=== PATIENT | male | born 1995 | race Caucasian/White ===

== ENCOUNTER 2020-05-24 15:55 | Outpatient (CLI) | payer BC | END 2020-05-24 15:56 | disposition critical access hospital (66) | LOC: EMS 15:55 | PROVIDERS: ATTEND Emergency Medicine | DX: R56.9 Unspecified convulsions (principal) | CPT/HCPCS: A0425; A0427 ==

== ENCOUNTER 2020-05-24 16:14 | Emergency (ER) | payer BC ==
--- NOTE | 2020-05-24 16:30 | ED Physician Documentation ---
History of Present Illness - Stated complaint Stated Complaint: SEIZURE - Chief complaint Chief Complaint: Neuro - History obtained from History obtained from: Patient - History of Present Illness Timing: Today Pain level max: 0 Pain level now: 0 - Additonal information Additional information: Patient is a 24-year-old male who presents to the emergency department with recurrent seizures today. Has a longstanding history of seizures. Takes zonisamide. Does not know his dosage. Last seizure was about 4 weeks ago. States he had 3 seizures today lasting about 30 seconds each. He has not been sleeping well recently. No recent illnesses. No recent trauma. Nothing makes it better or worse. No injuries today. Review of Systems Constitutional: denies: Fever, Chills GI: denies: Vomiting, Diarrhea Skin: denies: Rash Musculoskeletal: denies: Neck pain, Back pain Neurologic: denies: Confused, Head injury, LOC PD PAST MEDICAL HISTORY - Past Medical History Past Medical History: Yes Neuro: Seizure disorder Musculoskeletal: Other (marfan's syndrome) - Past Surgical History Past Surgical History: No - Allergies Allergies/Adverse Reactions: Allergies Allergy/AdvReac Type Severity Reaction Status Date / Time prochlorperazine AdvReac Hallucinati Verified 05/24/20 16:26 [From Compazine] ons - Living Situation Living Arrangement: reports: At home - Family History Family history: reports: Non contributory PD ED PE NORMAL - Vitals Vital signs reviewed: Yes - General General: Alert and oriented X 3, No acute distress, Well developed/nourished - HEENT HEENT: Atraumatic, PERRL, EOMI, Ears normal, Moist mucous membranes - Neck Neck: Supple, no meningeal sign - Cardiac Cardiac: RRR, Strong equal pulses - Respiratory Respiratory: No respiratory distress, Clear bilaterally - Abdomen Abdomen: Soft, Non tender, Non distended - Derm Derm: Warm and dry, No rash - Extremities Extremities: No edema, No calf tenderness / cord - Neuro Neuro: Alert and oriented X 3, nuclear weapons custodian 2-12 intact, No motor deficit, No sensory deficit, Normal speech Eye Opening: Spontaneous Motor: Obeys Commands Verbal: Oriented GCS Score: 15 - Psych Psych: Normal mood, Normal affect Results - Vitals Vitals: Vital Signs - 24 hr 05/24/20 05/24/20 05/24/20 16:14 16:30 17:09 Temperature 37.1 C Heart Rate 102 H 101 H 76 Respiratory 18 16 18 Rate Blood Pressure 121/73 117/79 110/76 O2 Saturation 99 98 99 Oxygen O2 Source Room air - Labs Labs: Laboratory Tests 05/24/20 05/24/20 16:32 16:32 WBC 5.5 RBC 4.42 L Hgb 13.6 L Hct 39.6 L MCV 89.6 MCH 30.8 MCHC 34.3 RDW 12.5 Plt Count 190 MPV 9.6 Neut # (Auto) 3.6 Lymph # (Auto) 1.3 L [place] # (Auto) 0.4 Eos # (Auto) 0.1 Baso # (Auto) 0.0 Absolute Nucleated RBC 0.00 Nucleated RBC % 0.0 Sodium 143 Potassium 3.8 Chloride 109 Carbon Dioxide 26 Anion Gap 8.0 BUN 12 Creatinine 0.9 Estimated GFR (MDRD) 104 Glucose 107 H Calcium 9.5 Total Bilirubin 0.6 AST 17 ALT 17 Alkaline Phosphatase 37 L Total Protein 6.9 Albumin 4.3 Globulin 2.6 Albumin/Globulin Ratio 1.7 PD MEDICAL DECISION MAKING - ED course Complexity details: reviewed results, re-evaluated patient, considered differential, d/w patient ED course: 24-year-old male with a recurrent seizure disorder. 3 short seizures today, lasting approximately 30 seconds each. He is on zonisamide. Does not know his dosage. No significant lab abnormalities. Has not been sleeping well, sleep deprivation may be contributing to the increased seizure frequency. Recommend he contact his doctor tomorrow and get a referral for a neurologist here. He moved here about a year ago. Patient counseled regarding signs and symptoms for which I believe and urgent re-evaluation would be necessary. Patient with good understanding of and agreement to plan and is comfortable going home at this time This document was made in part using voice recognition software. While efforts are made to proofread this document, sound alike and grammatical errors may occur. Departure - Departure Disposition: 01 Home, Self Care Clinical Impression: Recurrent seizures Condition: Good Instructions: ED Seizure Recurrent Follow-Up: your,doctor in 1 week [Other] Itzel Deutsch MD [Physician No Access] - Comments: Contact your doctor tomorrow to let them know about your seizures and see if they want to adjust your medication. They will likely need to refer you to a neurologist, Dr. Lindo is nearby at [facility]. Return if you worsen
[2020-05-24 16:38] LABS: BASOPHILS % (AUTO) 0.7 %; EOSINOPHILS # (AUTO) 0.1 10^3/uL (0.0-0.7); EOSINOPHILS % (AUTO) 1.3 %; HCT - HEMATOCRIT 39.6 % (42.0-52.0); HGB - HEMOGLOBIN 13.6 g/dL (14.0-18.0); LYMPHOCYTES # (AUTO) 1.3 10^3/uL (1.5-3.5); LYMPHOCYTES % (AUTO) 24.4 %; MEAN CORPUSCULAR HEMOGLOBIN 30.8 pg (27.0-31.0); MEAN CORPUSCULAR HGB CONC 34.3 g/dL (32.0-36.0); MEAN CORPUSCULAR VOLUME 89.6 fL (80.0-94.0); MEAN PLATELET VOLUME 9.6 fL (7.4-11.4); MONOCYTES # (AUTO) 0.4 10^3/uL (0.0-1.0); MONOCYTES % (AUTO) 6.9 %; NEUTROPHILS # (AUTO) 3.6 10^3/uL (1.5-6.6); NEUTROPHILS % (AUTO) 66.3 %; PLT - PLATELET COUNT 190 10^3/uL (130-450); RED BLOOD COUNT 4.42 10^6/uL (4.70-6.10); RED CELL DISTRIBUTION WIDTH 12.5 % (12.0-15.0); WHITE BLOOD COUNT 5.5 x10^3/uL (4.8-10.8)
[2020-05-24 16:50] LABS: ALBUMIN 4.3 g/dL (3.2-5.5); ALBUMIN/GLOBULIN RATIO 1.7 (1.0-2.2); BILIRUBIN,TOTAL 0.6 mg/dL (0.2-1.0); CALCIUM 9.5 mg/dL (8.5-10.3); CREATININE 0.9 mg/dL (0.6-1.2); POTASSIUM 3.8 mmol/L (3.5-5.0); TOTAL PROTEIN 6.9 g/dL (6.7-8.2)
[2020-05-24 17:10] VITALS: BP 110/76
== END 2020-05-24 17:23 | disposition home or self-care (01) ==
LOC: ED 16:14
DX: G40.909 Epilepsy, unspecified, not intractable, without status epilepticus (principal)
CPT/HCPCS: 36415; 80053; 85025; 99283; 99284